=== PATIENT | female | born 1960 | race African-American/Black ===

== ENCOUNTER 2019-05-31 10:27 | Emergency (ER) | payer OTHER ==
[~2019-05-31] VITALS: Ht 175.3 cm; Wt 113.4 kg
[~2019-05-31 10:27] MED LIST: ALBUTEROL SULF8.5 GM INH; ASPIRIN EC81 MG PO; AZITHROMYCIN250 MG ORAL; AZITHROMYCIN250 MG PO; BENTYL10 MG ORAL; CALCIUM500 M1 PO; CLARITIN5 MG PO; IBUPROFEN600 MG PO; LASIX40 MG ORAL; LEVAQUIN500 MG PO; MAGNESIUM400 MG PO; MUCINEX DM ER1 EACH PO; NORCO 10-325 T1 EACH PO; NORCO 5-325 TA1 EACH ORAL; NORVASC5 MG PO; OMEPRAZOLE40 MG PO; ONDANSETRON ODT4 MG PO; PHENERGAN6.25 MG/5 ORAL; POTASSIUM CHLO10 ME3 ORAL; ROBITUSSIN DM5 ML ORAL; ROBITUSSIN DM5 ML PO; SOMA350 MG PO; SPIRONOLACTONE25 MG ORAL; TAMIFLU75 MG ORAL; TOPIRAMATE100 MG ORAL; TORSEMIDE20 MG PO; TYLENOL EXTRA500 MG ORAL; VICODIN 5-5001 EACH PO; VICODIN1 TAB PO; WARFARIN SODIUM2 MG ORAL; ZITHROMAX250 MG ORAL; ZOFRAN4 M3 ORAL
--- NOTE | 2019-05-31 10:45 | NUR ---
ED Nurse Note: pt walked in due to skin rash on the left thigh happend 3 days ago. pt stated it was from an insect bite but denies seeing the insect, pt not in distress. will continue to monitor.
[2019-05-31 10:47] VITALS: BP 130/81
[2019-05-31] MEDS ORDERED: PERCOCET 10-321 EACH ORAL (10:49)
[2019-05-31] MEDS ORDERED: COUMADIN5 MG ORAL (10:49)
[2019-05-31] MEDS ORDERED: COUMADIN7.5 MG ORAL (10:49)
[2019-05-31] MEDS ORDERED: GABAPENTIN100 MG ORAL (10:49)
--- NOTE | 2019-05-31 12:26 | Emergency Room Report ---
History of Present Illness General Chief Complaint: Skin Rash/Abscess Source: Patient Present Illness HPI 58-year-old female presents with rash left lower thigh, itchy nature, stated she wore a new set of pants, and had itchiness and slight redness, no fever no chills, no chest pain, no shortness of breath, patient presents for continued itchiness. Allergies: Coded Allergies: PREGABALIN (Verified Allergy, Unknown, 02/24/16) Swelling per Pt Patient History Past Medical History: see triage record Last Menstrual Period: na Reviewed Nursing Documentation: PMH: Agreed; PSxH: Agreed Nursing Documentation-PMH Past Medical History: No History, Except For Hx Hypertension: Yes Hx Pacemaker: Yes - 11/12/15 Hx COPD: Yes Hx Diabetes: No Hx Cancer: No Hx Gastrointestinal Problems: No Hx Dialysis: No Hx Neurological Problems: No Hx Cerebrovascular Accident: No Hx Seizures: No Review of Systems All Other Systems: negative except mentioned in HPI Physical Exam Vital Signs Date Time Temp Pulse Resp B/P (MAP) Pulse Ox O2 Delivery O2 Flow Rate FiO2 05/31/19 10:30 97.9 77 20 130/81 (97) 96 Sp02 EP Interpretation: reviewed, normal General Appearance: no apparent distress, alert, GCS 15, non-toxic Head: normocephalic, atraumatic Eyes: bilateral eye normal inspection, bilateral eye PERRL ENT: hearing grossly normal, normal pharynx, no angioedema, normal voice Neck: full range of motion, supple/symm/no masses Respiratory: chest non-tender, lungs clear, normal breath sounds, speaking full sentences Cardiovascular #1: regular rate, rhythm, no edema Cardiovascular #2: 2+ carotid (R), 2+ carotid (L), 2+ radial (R), 2+ radial (L) , 2+ dorsalis pedis (R), 2+ dorsalis pedis (L) Gastrointestinal: normal bowel sounds, non tender, soft, non-distended, no guarding, no rebound Rectal: deferred Genitourinary: normal inspection, no CVA tenderness Musculoskeletal: back normal, gait/station normal, normal range of motion, non- tender, calf tenderness Neurologic: alert, oriented x3, responsive, motor strength/tone normal, sensory intact, speech normal Psychiatric: judgement/insight normal, memory normal, mood/affect normal, no suicidal/homicidal ideation Skin: other - Thigh posterior aspect, 1 x 3 cm rash red, blanchable, slightly scaly Lymphatic: no adenopathy Medical Decision Making Diagnostic Impression: Primary Impression: Rash and other nonspecific skin eruption ER Course Patient with nondescript rash, possible fungal, versus bacterial, low suspicion for acute cellulitis given lack of red beefy appearance, patient counseled to apply antifungal cream, and to follow-up with dermatology Return precautions discussed will provide prescriptions Last Vital Signs Date Time Temp Pulse Resp B/P (MAP) Pulse Ox O2 Delivery O2 Flow Rate FiO2 05/31/19 10:47 97.9 72 20 130/81 96 Disposition: HOME, SELF-CARE Condition: Stable Scripts Clotrimazole* (LOTRIMIN*) 15 Gm Cream..g. 1 APPLIC TOPIC TWICE A DAY for 14 Days, #1 GM Prov: Baron Russo M.D. 05/31/19 Bacitracin (BACITRAYCIN PLUS) 28 Gm Oint...g. 28 GM TP DAILY for 10 Days, #1 GM Prov: Baron Russo M.D. 05/31/19 Referrals: NON PHYSICIAN (PCP) Baron Russo M.D. May 31, 2019 12:26
[2019-05-31] MEDS ORDERED: BACITRAYCIN PLU28 GM TP (12:28)
[2019-05-31] MEDS ORDERED: CLOTRIMAZOLE15 GM TOPIC (12:28)
[2019-05-31 12:48] VITALS: BP 126/80
--- NOTE | 2019-05-31 12:48 | NUR ---
ED Nurse Note: First contact w/pt a/ox x3, nad noted, discharge instructions given to pt w/rx, instructed to follow up w/pmd come back to er for any worsening condition, pt verb understanding of d/c. amb in stable condition.
== END 2019-05-31 12:48 | disposition home or self-care (01) ==
LOC: EMR 11:50
DX: R21 Rash and other nonspecific skin eruption (principal); I10 Essential (primary) hypertension; J44.9 Chronic obstructive pulmonary disease, unspecified; Z95.0 Presence of cardiac pacemaker
CPT/HCPCS: 99282